=== PATIENT | male | born 1960 | race Caucasian/White ===

== ENCOUNTER 2019-04-19 13:09 | Observation (INO) | payer OTHER ==
[~2019-04-19] VITALS: Ht 167.6 cm; Wt 81.8 kg
[~2019-04-19 13:09] MED LIST: OXYC5CAP19 PO
[2019-04-19] MEDS ORDERED: aspirin 81mg tab.chew PO ONE (13:20)
[2019-04-19 13:51] LABS: PARTIAL THROMBOPLASTIN TIME 28 SECONDS (22-32)
[2019-04-19 13:54] LABS: ALANINE AMINOTRANSFERASE 115 U/L (12-78); ALBUMIN 3.6 G/DL (3.4-5.0); ALBUMIN/GLOBULIN RATIO 1.3 (1.1-1.5); ALKALINE PHOSPHATASE 76 IU/L (46-116); ANION GAP 8 (8-16); ASPARTATE AMINO TRANSFERASE 39 U/L (10-37); BILIRUBIN,TOTAL 0.8 MG/DL (0.1-1.0); BLOOD UREA NITROGEN 13 MG/DL (7-18); BUN/CREATININE RATIO 13.8 (5.4-32.0); CALCIUM 8.4 MG/DL (8.5-10.1); CHLORIDE 110 MMOL/L (99-107); CREATININE 0.94 MG/DL (0.60-1.10); GLUCOSE 127 MG/DL (70-104); POTASSIUM 3.9 MMOL/L (3.5-5.1); SODIUM 141 MMOL/L (135-145); TOTAL CARBON DIOXIDE 23.2 MMOL/L (24-32); TOTAL PROTEIN 6.4 G/DL (6.4-8.2); eGFR 82 ML/MIN
[2019-04-19 14:00] LABS: MAGNESIUM 1.9 MG/DL (1.5-2.4)
--- NOTE | 2019-04-19 14:06 | NUR ---
HELEN: EXTENSION [id number] HERE AT [facility]. CUPOLA CHARGER
[2019-04-19 14:13] LABS: BASOPHILS # (AUTO) 0.1 X10'3 (0-0.2); BASOPHILS % (AUTO) 1.2 % (0-1); EOSINOPHILS % (AUTO) 0.2 % (0-6); HEMATOCRIT 36.2 % (42.0-52.0); HEMOGLOBIN 12.7 g/dl (14.0-17.9); LYMPHOCYTES # (AUTO) 2.1 X10'3 (1.1-4.8); LYMPHOCYTES % (AUTO) 34.8 % (21-51); MEAN CORPUSCULAR HEMOGLOBIN 42.4 PG (27.0-31.0); MEAN CORPUSCULAR HGB CONC 35.2 g/dL (33.0-36.5); MEAN CORPUSCULAR VOLUME 120.4 FL (78-98); MEAN PLATELET VOLUME 7.9 FL (7.4-10.4); MONOCYTES # (AUTO) 0.4 X10'3 (0-0.9); MONOCYTES % (AUTO) 6.4 % (2-12); NEUTROPHILS # (AUTO) 3.4 X10'3 (1.8-7.7); NEUTROPHILS % (AUTO) 57.4 % (42-75); RED CELL DISTRIBUTION WIDTH 14.7 % (11.5-14.5)
[2019-04-19 14:28] LABS: PLATELET COUNT 40 X10'3 (140-440)
[2019-04-19 14:45] LABS: LIPASE 103 U/L (73-393)
[2019-04-19] MEDS ORDERED: NO HOME MEDS (14:47)
[2019-04-19] MEDS ORDERED: dextrose 50%-water 50ml dispensing syringe IV PRN (15:00)
[2019-04-19] MEDS ORDERED: mag hydrox/Alum hydrox/simeth 30ml oral suspension PO PRN (15:00)
[2019-04-19] MEDS ORDERED: LORazepam 2 mg/ml vial IV PRN (15:00)
[2019-04-19] MEDS ORDERED: morphine 2 MG/ML inj. syringe IV PRN ×2 (15:00)
[2019-04-19] MEDS ORDERED: magnesium hydroxide 30ml (MOM) UD suspension PO PRN (15:00)
[2019-04-19] MEDS ORDERED: ondansetron/PF 4mg/2ml inj IV PRN (15:00)
[2019-04-19] MEDS ORDERED: thiamine 100mg/ml 2ml inj. IV ONE (15:00)
[2019-04-19] MEDS ORDERED: acetaminophen 325mg tablet PO PRN (15:00)
[2019-04-19] MEDS ORDERED: folic acid inj. 2 MG, thiamine inj. 100 MG in normal saline 100ml IV soln 100 ML IV SCH (15:06)
[2019-04-19] MEDS ORDERED: MVI, adult No.4 with vit. K 10 ML in dextrose 5% water 500ml 500 ML IV SCH ×2 (15:08)
[2019-04-19] MEDS: normal saline 1000ml 1,000 ML IV SCH (15:29)
[2019-04-19] MEDS: pantoprazole 40mg Tablet.DR PO SCH (15:34)
[2019-04-19 17:18] LABS: TOTAL CELLS COUNTED 100
[2019-04-19 17:20] LABS: PLATELET ESTIMATE DECREASED; POLYCHROMASIA FEW
[2019-04-19 18:30] VITALS: BP 158/80
[2019-04-19] MEDS: heparin, porcine 5000 units/ml vial SQ SCH (20:00)
[2019-04-20] VITALS: BP 158/77
[2019-04-20] MEDS: normal saline 1000ml 1,000 ML IV SCH ×2 (00:57→10:57)
[2019-04-20 01:18] LABS: BASOPHILS # (AUTO) 0.1 X10'3 (0-0.2); BASOPHILS % (AUTO) 1.1 % (0-1); EOSINOPHILS # (AUTO) 0.1 X10'3 (0-0.9); EOSINOPHILS % (AUTO) 1.1 % (0-6); HEMATOCRIT 32.2 % (42.0-52.0); HEMOGLOBIN 11.4 g/dl (14.0-17.9); LYMPHOCYTES # (AUTO) 0.8 X10'3 (1.1-4.8); LYMPHOCYTES % (AUTO) 15.9 % (21-51); MEAN CORPUSCULAR HEMOGLOBIN 42.8 PG (27.0-31.0); MEAN CORPUSCULAR HGB CONC 35.6 g/dL (33.0-36.5); MEAN CORPUSCULAR VOLUME 120.4 FL (78-98); MEAN PLATELET VOLUME 8.5 FL (7.4-10.4); MONOCYTES # (AUTO) 0.1 X10'3 (0-0.9); MONOCYTES % (AUTO) 2.3 % (2-12); NEUTROPHILS # (AUTO) 4.1 X10'3 (1.8-7.7); NEUTROPHILS % (AUTO) 79.6 % (42-75); RED BLOOD COUNT 2.67 X10'6 (4.70-6.10); RED CELL DISTRIBUTION WIDTH 14.3 % (11.5-14.5); WHITE BLOOD COUNT 5.1 X10'3 (4.5-11.0)
[2019-04-20 01:23] LABS: PLATELET COUNT 33 X10'3 (140-440)
[2019-04-20 01:33] LABS: ALBUMIN 2.9 G/DL (3.4-5.0); ANION GAP 5 (8-16); BLOOD UREA NITROGEN 13 MG/DL (7-18); BUN/CREATININE RATIO 11.3 (5.4-32.0); CALCIUM 7.8 MG/DL (8.5-10.1); CHLORIDE 112 MMOL/L (99-107); CREATININE 1.15 MG/DL (0.60-1.10); GLUCOSE 126 MG/DL (70-104); POTASSIUM 3.9 MMOL/L (3.5-5.1); SODIUM 143 MMOL/L (135-145); TOTAL CARBON DIOXIDE 26.2 MMOL/L (24-32); eGFR 65 ML/MIN
[2019-04-20 02:51] LABS: PLATELET ESTIMATE DECREASED
--- NOTE | 2019-04-20 06:36 | NUR ---
Problems reprioritized. Patient report given, questions answered & plan of care reviewed with Liliane. Addendum: 04/20/19 at 0637 by Harshil Brothers RN Amended: Links added.
[2019-04-20 07:15] VITALS: BP 142/87
[2019-04-20] MEDS: pantoprazole 40mg Tablet.DR PO SCH (07:17)
[2019-04-20] MEDS: heparin, porcine 5000 units/ml vial SQ SCH (07:18)
[2019-04-20] MEDS ORDERED: folic acid inj. 2 MG, thiamine inj. 100 MG, MVI, adult No.4 with vit. K 10 ML in dextro... IV SCH ×4 (08:00)
[2019-04-20] MEDS ORDERED: multivitamins, therapeutics tablet PO SCH (08:00)
[2019-04-20] MEDS ORDERED: thiamine 100mg tablet PO SCH (08:00)
[2019-04-20] MEDS ORDERED: folic acid 1mg tablet PO SCH (08:00)
--- NOTE | 2019-04-20 09:30 | NUR ---
Heart rate down to 40's. MD aware.
--- NOTE | 2019-04-20 10:00 | NUR ---
[facility] downtime [phone] please refer to paper charting.
[2019-04-20] MEDS ORDERED: PANT-47 PO (11:45)
[2019-04-20] MEDS ORDERED: THIA100T66 PO (11:45)
[2019-04-20] MEDS ORDERED: FOLI0.4T2 PO (11:45)
[2019-04-20 11:50] VITALS: BP 160/65
--- NOTE | 2019-04-20 12:27 | NUR ---
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
--- NOTE | 2019-04-20 14:24 | NUR ---
Patient discharged home with family. Stable and appropriate. IV removed, alarm security or surveillance monitor removed. All belongings taken from room. Prescription given to patient. Discharge instructions given and reviewed with patient, all questions answered.
[2019-04-21] MEDS ORDERED: LORazepam 2 mg/ml vial IV PRN (15:00)
[2019-04-21] MEDS ORDERED: LORazepam 1 MG tablet PO PRN (15:00)
[2019-04-23] MEDS ORDERED: LORazepam 1 MG tablet PO PRN (15:00)
[2019-04-23] MEDS ORDERED: LORazepam 2 mg/ml vial IV PRN (15:00)
== END 2019-04-20 14:26 | disposition home or self-care (01) ==
LOC: ER 13:10 → SUR 3N 19:13 → CMPBEDREQ 19:45
PROVIDERS: ADMIT Family Medicine; ATTEND Family Medicine
DX: R07.89 Other chest pain (principal); D69.6 Thrombocytopenia, unspecified; F10.20 Alcohol dependence, uncomplicated; B19.20 Unspecified viral hepatitis C without hepatic coma; J44.9 Chronic obstructive pulmonary disease, unspecified; F17.210 Nicotine dependence, cigarettes, uncomplicated
CPT/HCPCS: 36415; 71045; 76700; 80048; 80053; 83690; 83735; 83880; 84484; 85025; 85610; 85730; 87081; 93005; 93306; 96365; 96366; 96368; 96376; 99284; G0378; J1644; J3411; J3490; J7030; J7060

== ENCOUNTER 2020-01-04 12:02 | Emergency (ER) | payer OTHER ==
[~2020-01-04] VITALS: Ht 167.6 cm; Wt 78.2 kg
[~2020-01-04 12:02] MED LIST changes: +NO HOME MEDS; -OXYC5CAP19 PO; +PANT-47 PO; +THIA100T66 PO
[2020-01-04 12:17] LABS: HEMOGLOBIN 12.8 g/dl (14.0-17.9); MEAN PLATELET VOLUME 7.2 FL (7.4-10.4)
[2020-01-04 12:19] LABS: HEMATOCRIT 35.8 % (42.0-52.0); MEAN CORPUSCULAR HEMOGLOBIN 40.8 PG (27.0-31.0); MEAN CORPUSCULAR HGB CONC 35.8 g/dL (33.0-36.5); RED BLOOD COUNT 3.14 X10'6 (4.70-6.10); RED CELL DISTRIBUTION WIDTH 14.6 % (11.5-14.5)
--- NOTE | 2020-01-04 12:24 | NUR ---
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
[2020-01-04 12:32] LABS: ALANINE AMINOTRANSFERASE 37 U/L (12-78); ALBUMIN/GLOBULIN RATIO 1.4 (1.1-1.5); ALKALINE PHOSPHATASE 91 IU/L (46-116); ANION GAP 9 (8-16); ASPARTATE AMINO TRANSFERASE 16 U/L (10-37); BILIRUBIN,TOTAL 0.9 MG/DL (0.1-1.0); BLOOD UREA NITROGEN 15 MG/DL (7-18); BUN/CREATININE RATIO 13.8 (5.4-32.0); CALCIUM 8.8 MG/DL (8.5-10.1); CHLORIDE 108 MMOL/L (99-107); CREATININE 1.09 MG/DL (0.60-1.10); GLUCOSE 100 MG/DL (70-104); POTASSIUM 3.8 MMOL/L (3.5-5.1); SODIUM 141 MMOL/L (135-145); TOTAL CARBON DIOXIDE 24.4 MMOL/L (24-32); TOTAL PROTEIN 6.8 G/DL (6.4-8.2); eGFR 69 ML/MIN
[2020-01-04 12:49] LABS: PLATELET COUNT 34 X10'3 (140-440)
[2020-01-04 12:53] LABS: PLATELET ESTIMATE DECREASED; TOTAL CELLS COUNTED 100
[2020-01-04 12:54] LABS: POLYCHROMASIA FEW; SCHISTOCYTES FEW
[2020-01-04] MEDS ORDERED: iohexol 350MG/ML 100ml bottle IV ONE (14:34)
[2020-01-04 15:36] VITALS: BP 161/90
== END 2020-01-04 15:39 | disposition home or self-care (01) ==
LOC: ER 12:03
DX: R07.89 Other chest pain (principal); E78.00 Pure hypercholesterolemia, unspecified; I10 Essential (primary) hypertension; J44.9 Chronic obstructive pulmonary disease, unspecified; F17.200 Nicotine dependence, unspecified, uncomplicated; Z86.19 Personal history of other infectious and parasitic diseases; Z98.890 Other specified postprocedural states; Z79.899 Other long term (current) drug therapy
CPT/HCPCS: 36415; 71045; 71275; 80053; 84484; 85025; 93005; 99285; Q9967